=== PATIENT | female | born 1950 | race Caucasian/White ===

== ENCOUNTER → 2017-03-27 | Outpatient (CLI) | payer OTHER ==
[2015-11-29 21:45] VITALS: BP 159/81
[~2017-03-27] MED LIST: ACYC400T PO; HYDR25TA9 PO; TEMA30CA PO; TRAM50TA PO
--- NOTE | 2017-03-27 14:31 | RAD ---
Abdominal ultrasound, 03/27/2017: History: Acute renal failure The gallbladder contains multiple foci of increased echogenicity with associated posterior acoustic shadowing. The appearance is that of cholelithiasis. The gallbladder mendez do not appear to be thickened. The common hepatic duct is slightly enlarged measuring 6-7 mm. The intrahepatic bile ducts also appear to be mildly prominent. There is no evidence of a hepatic mass. The pancreas was obscured by overlying bowel. The spleen is surgically absent. No renal abnormality is detected. The inferior vena cava is patent. There is mild aortic atherosclerosis without evidence of aneurysm. No free fluid is evident in the abdomen. IMPRESSION: 1. Cholelithiasis. 2. Mild dilatation of the common hepatic duct and the intrahepatic ducts raising the possibility of a distal obstructive process such as a common duct calculus. 3. The pancreas and distal common bile duct were obscured by overlying bowel. 4. Status post splenectomy.
== END | disposition home or self-care (01) ==
LOC: US 08:48
PROVIDERS: ATTEND Internal Medicine Nephrology
DX: K80.20 Calculus of gallbladder without cholecystitis without obstruction (principal); N17.9 Acute kidney failure, unspecified; I70.0 Atherosclerosis of aorta; Z90.81 Acquired absence of spleen
CPT/HCPCS: 76700

== ENCOUNTER → 2018-07-24 | Outpatient (CLI) | payer OTHER ==
[2015-11-29 21:45] VITALS: BP 159/81
--- NOTE | 2018-07-24 16:15 | RAD ---
Examination: Lower Extremity Venous Doppler Ultrasound History: Left leg pain, swelling Comparison: None Procedure: Veliz scale, color flow 2D and spectal waveform analysis images are obtained with and without compression in the area of the common femoral vein, superficial femoral vein - femoral vein junction, main femoral vein (superficial femoral vein) and popliteal vein. Veins of the proximal calf are also imaged. Findings: There is normal duplex flow, color flow and compressibility of all visualized vein segments. No evidence of deep venous thrombus is present. There is a 3.2 x 2.3 x 1.2 cm cystic region identified in the popliteal fossa with some echogenicity within. Impression: 1. No evidence of deep venous thrombosis in the visualized left lower extremity venous system. 2. A 3.2 cm cystic structure identified in the popliteal fossa containing some echogenicities /debris within probably a popliteal cyst. Electronically signed by: Jeffy Ojeda MD (07/24/2018 4:12 PM) [id number]
--- NOTE | 2018-07-24 16:21 | RAD ---
Left tibia and fibula, 2 views, 07/24/2018: HISTORY: Recent fall, leg pain The bony structures are demineralized. No fracture is identified. Chondrocalcinosis is present at the knee joint. Arterial calcifications are present. IMPRESSION: 1. Demineralization. 2. No acute bony abnormality is detected. Electronically signed by: Sin Martin MD (07/24/2018 4:18 PM) [facility]
== END | disposition home or self-care (01) ==
LOC: US 15:13
PROVIDERS: ATTEND Neuromusculoskeletal Medicine & OMM
DX: M11.262 Other chondrocalcinosis, left knee (principal); M81.8 Other osteoporosis without current pathological fracture; R22.42 Localized swelling, mass and lump, left lower limb; Z87.891 Personal history of nicotine dependence; Z90.81 Acquired absence of spleen; Z90.49 Acquired absence of other specified parts of digestive tract; Z88.0 Allergy status to penicillin; Z88.8 Allergy status to other drugs, medicaments and biological substances; Z88.6 Allergy status to analgesic agent
CPT/HCPCS: 73590; 93971

== ENCOUNTER → 2018-11-01 | Outpatient (CLI) | payer OTHER ==
[2015-11-29 21:45] VITALS: BP 159/81
[~2018-11-01] MED LIST changes: +HYDR-2145 PO; -HYDR25TA9 PO
--- NOTE | 2018-11-01 18:24 | RAD ---
AP pelvis radiograph to include AP and lateral radiographs of the left hip 11/01/2018 CLINICAL HISTORY: Pelvic and left hip pain. Recent fall. An AP digital radiograph of the pelvis to include both hips was obtained. AP and lateral radiographs of the left hip were obtained. There is diffuse osteopenia of the visualized bony structures. Surgical clips overlie the lower pelvis. No pelvic bone fracture is seen. Both hips are intact. Specifically no fracture or dislocation left hip is seen. Mild degenerative changes are seen involving both hips. IMPRESSION: No fracture or dislocation is seen. Electronically signed by: Jony Yoon MD (11/01/2018 6:20 PM) [id number]
== END | disposition home or self-care (01) ==
LOC: DXRAD 16:30
PROVIDERS: ATTEND Family Medicine
DX: M16.0 Bilateral primary osteoarthritis of hip (principal); M85.88 Other specified disorders of bone density and structure, other site
CPT/HCPCS: 73502

== ENCOUNTER → 2019-02-27 | Outpatient (CLI) | payer OTHER ==
[2015-11-29 21:45] VITALS: BP 159/81
--- NOTE | 2019-02-27 17:17 | RAD ---
KNEE LEFT 3V History: Left knee pain, fracture 6 months ago Comparison: December 10, 2018 Findings: 4 views of the left knee are submitted. There is again displaced medial tibial plateau fracture. There is again chondrocalcinosis. There is severe narrowing of the lateral compartment joint space, to lesser degree of the medial compartment. There is bone demineralization. Impression: 1. There is again evidence of old, displaced medial tibial plateau fracture. There is severe narrowing of the lateral compartment joint space, to lesser degree of the medial compartment. There is again chondrocalcinosis. 2. There is bone demineralization. Electronically signed by: Nadeem Sawyer MD (02/27/2019 5:15 PM) [id number]
== END | disposition home or self-care (01) ==
LOC: RAD 13:59
PROVIDERS: ATTEND Family Medicine
DX: S82.142D Displaced bicondylar fracture of left tibia, subsequent encounter for closed fracture with routine healing (principal); M11.262 Other chondrocalcinosis, left knee; M81.8 Other osteoporosis without current pathological fracture; A60.00 Herpesviral infection of urogenital system, unspecified; X58.XXXD Exposure to other specified factors, subsequent encounter
CPT/HCPCS: 73562

== ENCOUNTER → 2019-04-30 | Outpatient (CLI) | payer OTHER ==
[2015-11-29 21:45] VITALS: BP 159/81
--- NOTE | 2019-04-30 17:01 | RAD ---
CT of the left femur Indication: Displaced intertrochanteric fracture of the femur. Exposure: One or more of the following individualized dose reduction techniques were utilized for this examination: 1. Automated exposure control 2. Adjustment of the mA and/or kV according to patient size 3. Use of iterative reconstruction technique. Technique: Standard imaging without intravenous contrast. Comparison: No prior studies or radiographs are available for comparison.o FINDINGS: There is deformity of the proximal left femur. This has a chronic appearance and is likely due to an old fracture. There is anterior angulation as well. No evidence of acute fracture involving the left femur. There is generalized bone demineralization. No evidence of left hip dislocation. Degenerative changes at the left knee. A fracture deformity of the posterior left tibial plateau involving the tibial spine and articular surface is partially seen and appears chronic, also identified on prior radiographs. No significant soft tissue abnormality is identified. Vascular calcification. IMPRESSION: 1. Old appearing fracture deformity of the left intertrochanteric proximal femur. 2. Partially seen old appearing fracture deformity of the left tibial plateau. 3. No definite acute fracture. Consider MRI for more sensitive acute fracture detection as indicated. Electronically signed by: Sukhi Wayne MD (04/30/2019 4:58 PM) [facility] [place]
== END | disposition home or self-care (01) ==
LOC: CT 14:06
PROVIDERS: ATTEND Orthopaedic Surgery Adult Reconstructive Orthopaedic Surgery
DX: S72.14 Intertrochanteric fracture of femur (principal); M21.952 Unspecified acquired deformity of left thigh; X58.XXXD Exposure to other specified factors, subsequent encounter
CPT/HCPCS: 73700